=== PATIENT | male | born 1990 | race Caucasian/White ===

== ENCOUNTER 2020-03-03 12:00 | Emergency (ER) | payer OTHER, SELFPAY ==
[2020-03-03 12:09] VITALS: BP 127/81; PULSE 81; RESP 16; TEMP 37.1; O2SAT 98
--- NOTE | 2020-03-03 12:35 | ED.EYEPROB ---
HPI - Eye Problem General Chief complaint: Eye Problems Stated complaint: Swollen under right eye Time Seen by Provider: 03/03/20 12:32 Source: patient and RN notes reviewed Mode of arrival: ambulatory Limitations: no limitations History of Present Illness HPI Narrative: 30-year-old male presents with concern for swelling under his right eye. Reports he noticed it yesterday. Denies vision changes, drainage from the eye, eye pain. Reports he used a warm compress 1 time with some relief. chief complaint: other (Swelling under eye) Related Data Home Medications Medication Instructions Recorded Confirmed loratadine 10 mg tablet 10 mg PO DAILY 11/10/19 03/03/20 Allergies Allergy/AdvReac Type Severity Reaction Status Date / Time No Known Allergies Allergy Mild Verified 12/26/11 13:26 Review of Systems Review of Systems: Narrative: CONSTITUTIONAL: Denies malaise, chills, sweats, or fever. EYES: Denies visual changes, redness, or discharge. Reports swelling under right eyelid ENT: Denies rhinorrhea, congestion, sinus pain, otalgia or sore throat. SKIN: Denies rash or itching. MUSCULOSKELETAL: Denies myalgia. NEUROLOGIC: Denies headache. All systems reviewed & are unremarkable except as noted in HPI and below PMFSH Social History Social History Smoking status: Never smoker Second hand tobacco smoke exposure: No Alcohol intake: current Comments At time of signature, agree with nursing past medical, surgical, social and family history. There is no relevant family history pertinent to the presenting complaint Exam Narrative: Exam Narrative: GENERAL: Well-appearing, well-nourished, and in no acute distress. HEAD: Normocephalic, atraumatic. EYES: PERRLA, conjunctivae clear, and EOMI. No nystagmus. No periorbital edema ENT: Nares clear, turbinates pink, no rhinorrhea or epistaxis. Mucous membranes moist. TM pearly garza with sharp light reflex bilaterally; no tragal tenderness. NECK: Supple. CHEST: No respiratory distress. Speaks in full sentences. HEART: Regular rate and rhythm SKIN: Warm, dry. 2 cm x 1 cm area of erythema and mild edema, no induration with small break in skin consistent with insect bite, eyelid margin not involved. NEURO: Alert and oriented x3. No focal deficits. PSYCH: Normal mood and affect Course Course Emergency Course: Patient is aware of diagnosis, understands and agrees to treatment plan. Anticipatory guidance given. Patient agrees to follow-up as directed and is aware of reasons to seek care at the emergency department. Portions of this record may have been created with voice recognition software Vital Signs Vital signs: Vital Signs Temperature 98.8 F 03/03/20 12:09 Pulse Rate 81 03/03/20 12:09 Respiratory Rate 16 03/03/20 12:09 Blood Pressure 127/81 03/03/20 12:09 Pulse Oximetry 98 03/03/20 12:09 Temperature 98.8 F 03/03/20 12:09 Pulse Rate 81 03/03/20 12:09 Respiratory Rate 16 03/03/20 12:09 Blood Pressure 127/81 03/03/20 12:09 Pulse Oximetry 98 03/03/20 12:09 Reviewed. Pt has been instructed to follow up with his primary care provider within the next week regarding his elevated blood pressure today. MDM - Eye Problem MDM Narrative Medical decision making narrative: Consideration of the following conditions may be warranted for the presenting problem, they are not final diagnoses: Bacterial conjunctivitis, allergic conjunctivitis, viral conjunctivitis, foreign body, blepharitis, chalazion, hordeolum, corneal abrasion. Exam findings show no acute concerns or changes; patient is non-toxic appearing and is in no distress. Patient is appropriate for outpatient treatment and follow-up. Critical Care Time Critical Care Time Critical Care Time: No Discharge Plan Discharge Clinical Impression: Insect bite of eyelid with local reaction Qualifiers: Encounter type: initial encounter L
== END 2020-03-03 12:45 | disposition home or self-care (01) ==
PROVIDERS: Emergency Provider Nurse Practitioner; PCP Internal Medicine
DX: S00.261A Insect bite (nonvenomous) of right eyelid and periocular area, initial encounter (principal); W57.XXXA Bitten or stung by nonvenomous insect and other nonvenomous arthropods, initial encounter
CPT/HCPCS: 99212; G0463

== ENCOUNTER 2020-08-22 07:45 | Outpatient (CLI) | payer OTHER, SELFPAY ==
--- NOTE | 2020-09-23 08:22 | WPDHOMESLEEP ---
Sleep Study - Home Unattended Date of Study: 08/22/20 Ordering Provider: Brayden Alfaro MD Interpreting Physician: Anabelle Olson MD Home Sleep Study Type: Apnea Link Air Height: 1.85 m Weight: 83.915 kg Body Mass Index: 24.4 Neck Circumference (inches): 16 [place]: 12 Reason for Sleep Study snoring, jerking during sleep Sleep History Isra Carson is a 30 year old male who snores loudly and jerks in his sleep. His and his [id number] say that he looks like he is having a seizure while he sleeps. His mother tells him he has done this since he was a teenager. This happens every night. He has difficulty falling asleep, he wakes up during the night and he has excessive daytime sleepiness. He has a difficult time waking up in the morning. He does not sweat at night. He rarely notices his heart pounding or beating irregularly at night. He does not fall asleep during the day, involuntarily, while driving, or during physical effort. He does not have loss of muscle tone with strong emotion. He does not have excessive daytime difficulties due to excessive sleepiness, currently works as an RN. he does not feel paralyzed on waking or falling asleep. He occasionally has vivid dreamlike scenes upon awakening or falling asleep. He has never for a to go to sleep. He denies nightmares. He rarely remembers his dreams. He does not have racing thoughts, does not feel sad or depressed. He rarely has anxiety. He frequently has muscular tension. He constantly notices parts of his body jerking. He occasionally kicks at night, occasionally has crawling and aching feelings in his legs and occasionally has leg pain at night. He frequently has morning jaw pain. He does not grind his teeth during sleep. He rarely has bothered by pain during the day. He has never awakened by pain at night. He occasionally wakes up feeling stiff in the morning with sore achy muscles and pain in the neck and spine. He has fatigue, headaches and feels tense. Normal bedtime is 11:00 p.m. falling asleep within 10-20 minutes, typically waking 1-2 times at night. While awake, he will go to the bathroom to urinate, staying awake 10-15 minutes before being able to return to sleep. 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 He wakes the morning at 6:00 a.m.. On the weekends, he may sleep until 8:00 a.m.. He does take naps. A short nap may be refreshing. He is usually drowsy in the morning for 2 hours or longer. Habits: Never smoked tobacco. He drinks caffeine 2 cups of coffee a day. He drinks alcohol 2 servings per week. No recreational drugs. [facility]LY [facility] Past Medical History Medical History (Updated 09/23/20 @ 08:40 by Anabelle Olson MD) Allergic rhinitis, unspecified Anxiety disorder, unspecified Snoring Surgical History Surgical History (Updated 09/23/20 @ 08:37 by Anabelle Olson MD) Status post shoulder surgery Family History Family History Father Depression Mother Depression Social History Social History Smoking status: Never smoker Second hand tobacco smoke exposure: No Alcohol intake: current Medications Home Medications Medication Instructions Recorded Confirmed Type loratadine 10 mg tablet 10 mg PO DAILY 11/10/19 05/31/20 History citalopram 10 mg tablet 10 mg PO DAILY #90 tablet 02/16/20 05/31/20 Rx clonazepam 0.5 mg tablet 0.5 mg PO .once daily at hs #90 05/31/20 05/31/20 Rx tablet Sleep Procedure This test was performed using 4 channel monitoring including respiratory effort channel, snoring channel, heart rate channel, and oxygen saturation channel. This study was scored using CMS guidelines. Sleep Architecture Not applicable for home sleep test. Respiratory Analysis The duration of the recording time was 9 hours 15 minutes
[2020-09-23 08:27] VITALS: BMI 24.4
== END 2020-08-22 07:46 | disposition home or self-care (01) ==
LOC: ANHCSM 07:45
PROVIDERS: PCP Internal Medicine; Visit Provider Internal Medicine
DX: G47.10 Hypersomnia, unspecified (principal)
CPT/HCPCS: 95806

== ENCOUNTER 2022-05-07 09:58 | Emergency (ER) | payer OTHER, SELFPAY ==
--- NOTE | ~2022-05-07 | XR_ITS ---
XR shoulder RT min 2V 05/07/2022 11:04 Indication: Post reduction of right shoulder dislocation Procedure: 3 views right shoulder Comparison: 05/07/2022 Findings: There is anatomic alignment of the right shoulder post reduction. No acute fracture or trau matic malalignment. Acromioclavicular joint and anatomic alignment. Surrounding soft tissues and osse ous structures are within normal limits. Impression: 1: Anatomic alignment of the right shoulder post reduction. No underlying fracture. Reviewed, dictated and finalized at location L. Impression: 1: Anatomic alignment of the right shoulder post reduction. No underlying fract ure.
--- NOTE | ~2022-05-07 | XR_ITS ---
XR shoulder RT min 2V DATE: 05/07/2022 10:25 INDICATION: Injury. Pain, limited range of motion of right shoulder TECHNIQUE: 4 views COMPARISON: None FINDINGS: There is right anterior glenohumeral dislocation. No associated fracture is evident. Normal alignment at the right acromioclavicular joint. IMPRESSION: Anterior right glenohumeral dislocation Reviewed, dictated and finalized at location B.
[2022-05-07 10:02] VITALS: BP 157/89; PULSE 95; RESP 18; TEMP 36.6; O2SAT 100
--- NOTE | 2022-05-07 10:45 | ED.UPPEXIN ---
HPI - Extremity Injury (Upper) General Chief Complaint: Extremity Injury, Upper Stated Complaint: Shoulder Dislocation Time Seen by Provider: 05/07/22 10:41 Source: patient and RN notes reviewed Mode of arrival: ambulatory Limitations: no limitations History of Present Illness HPI narrative: This is a right hand dominant 32 year old male who presents for right shoulder dislocation. Patient states he was reaching for milk in the refrigerator when he dislocated his right shoulder. He has had multiple previous right shoulder dislocations. He states this last occurred this past . He denies numbness or tingling. He reports having right shoulder surgery over a decade ago for recurrent shoulder dislocations . Related Data Home Medications Medication Instructions Recorded Confirmed cetirizine 10 mg tablet (Zyrtec) 10 mg PO DAILY PRN 03/20/21 03/20/21 fluticasone furoate 27.5 2 spray intranasal DAILY 03/20/21 03/20/21 mcg/actuation nasal spray,suspension (Flonase Sensimist) Allergies Allergy/AdvReac Type Severity Reaction Status Date / Time No Known Allergies Allergy Mild Verified 05/05/22 09:41 Review of Systems Constitutional: Constitutional: Denies chills and Denies fatigue Gastrointestinal: Gastrointestinal: Denies nausea and Denies vomiting Musculoskeletal: Musculoskeletal: Reports arthralgias (right shoulder) Neurologic: Denies focal weakness and Denies numbness PMFSH Past Medical History Medical History Allergic rhinitis, unspecified Anxiety disorder, unspecified Snoring Surgical History Surgical History Status post shoulder surgery Family History Family History Father Depression Mother Depression Social History Social History Smoking status: Never smoker Second hand tobacco smoke exposure: No Alcohol intake: current Exam Const: General: no acute distress and alert Nutritional Appearance: well nourished Orientation/consciousness: patient oriented x3 Limitations: no limitations HENMT: Head: normal to inspection Eyes: EOM: EOMs intact bilaterally Resp: Effort & Inspection: normal respiratory effort Cardio: Other: intact distal pulses Skin: General skin exam: normal color Rashes: no rashes Neuro: General: patient oriented x3, moves all extremities and CN's II-XI intact bilaterally Extrem: Other: right shoulder appears dislocated, normal color. radial pulse intact Psych: Mental Status: mental status grossly normal Course Reevaluation(s) Reevaluation #1: I discussed with patient that his shoulder is dislocated. I offered to get an IV placed for pain medication and possible sedation. He agreed to shoulder reduction without medication. It has been successfully reduced. He will placed in shoulder immobilizer. Date: 05/07/22 Time: 10:49 Vital Signs Vital signs: Vital Signs Temperature 97.8 F 05/07/22 10:02 Pulse Rate 95 05/07/22 10:02 Respiratory Rate 18 05/07/22 10:02 Blood Pressure 157/89 H 05/07/22 10:02 Pulse Oximetry 100 05/07/22 10:02 Oxygen Delivery Room Air 05/07/22 10:02 Temperature 97.8 F 05/07/22 10:02 Pulse Rate 95 05/07/22 10:02 Respiratory Rate 18 05/07/22 10:02 Blood Pressure 157/89 H 05/07/22 10:02 Pulse Oximetry 100 05/07/22 10:02 Oxygen Delivery Room Air 05/07/22 10:02 Procedures Orthopedic Joint Reduction Joint #1: Orthopedic Joint Reduction Date: 05/07/22 Orthopedic Joint Reduction Time: 10:50 Side: right Joint Reduction Location: shoulder Analgesia: none Pre-Procedure Neuro Vascular Exam: normal Shoulder Technique Used (if applicable): external rotation Technique used: direct manipulation
== END 2022-05-07 11:44 | disposition home or self-care (01) ==
PROVIDERS: Emergency Provider General Practice; PCP Family Medicine
DX: M24.411 Recurrent dislocation, right shoulder (principal); F41.9 Anxiety disorder, unspecified
CPT/HCPCS: 23650; 73030; 99285

== ENCOUNTER 2022-11-11 05:19 | Emergency (ER) | payer OTHER, SELFPAY ==
--- NOTE | ~2022-11-11 | XR_ITS ---
Right Shoulder Technique: AP and scapular Y views were obtained. Clinical History: Postreduction Findings: No fracture or dislocation is seen. Osseous alignment is anatomic. The glenohumeral and acr omioclavicular joint spaces are preserved. Soft tissues are unremarkable. Impression: No fracture or dislocation seen in the current exam. Reviewed, dictated and finalized at [facility]. [employer] WORK[employer] Impression: No fracture or dislocation seen in the current exam.
[2022-11-11 05:21] VITALS: BP 144/89; PULSE 113; RESP 16; TEMP 36.7; O2SAT 97
[2022-11-11] MEDS: MORPHINE SULFATE (*CRX) 4 MG/ML INJ IV PUSH (05:33)
--- NOTE | 2022-11-11 05:33 | ED.UPPEXIN ---
HPI - Extremity Injury (Upper) General Chief Complaint: Extremity Injury, Upper Stated Complaint: shoulder Time Seen by Provider: 11/11/22 05:25 History of Present Illness HPI narrative: Patient is a 32-year-old male who presents ER with a right shoulder dislocation. Reports history of previous shoulder dislocations. He was sleeping and he thinks he was trying to potentially push-up while he was asleep when his shoulder went out of place. Sudden pain. No numbness or tingling down the arm. No additional injury or concern. Related Data Home Medications Medication Instructions Recorded Confirmed cetirizine 10 mg tablet (Zyrtec) 10 mg PO DAILY PRN 03/20/21 07/08/22 fluticasone furoate 27.5 2 spray intranasal DAILY 03/20/21 07/08/22 mcg/actuation nasal spray,suspension (Flonase Sensimist) Allergies Allergy/AdvReac Type Severity Reaction Status Date / Time azithromycin Allergy Intermediate Rash Uncoded 10/01/22 07:59 Review of Systems Musculoskeletal: Musculoskeletal: Reports arthralgias, Reports joint swelling and Denies muscle cramps Neurologic: Denies focal weakness and Denies numbness PMFSH Past Medical History Medical History Allergic rhinitis, unspecified Anxiety disorder, unspecified Snoring Surgical History Surgical History Status post shoulder surgery Family History Family History Father Depression Mother Depression Social History Social History (Updated 10/01/22 @ 08:02 by Valerie Funez MA) Smoking status: Never smoker Second hand tobacco smoke exposure: No Alcohol intake: current Alcohol use details: Socially Substance use: never Substance use type: does not use Lack of Transportation: No Lack of Food: Never True Current Housing: I Have Housing Concerned About Future Housing: No Difficulty Paying Gas/Electric Bills: No Difficulty Paying for Meds: No Currently Unemployed: No Education: Bachelor's Degree Difficulty w/ Childcare or Family Care: No Living arrangements: with family Occupation/Education: occupation Gender identity (if verbalized by the patient): Male Agree to blood products: Yes Exam Narrative: GENERAL: Well-appearing, well-nourished, and in no acute distress. HEAD: Normocephalic, atraumatic. ENT: Mucous membranes moist. NECK: Supple. CHEST: Clear to auscultation. No respiratory distress. HEART: Regular rate and rhythm. Normal peripheral pulses. EXTREMITIES: Deformity at the right shoulder consistent with anterior shoulder dislocation, decreased range of motion of shoulder due to pain and deformity with the arm abducted and slightly externally rotated as a position of comfort. Neurovascular intact in the affected extremity. SKIN: Warm, dry, no rash. NEURO: Alert and oriented x3. PSYCH: Normal mood and affect. Course Course Emergency Course: Patient feels much better after reduction. Shoulder immobilized. Discussed orthopedic follow-up. He will also need a work note as he is supposed to work this morning. Vital Signs Vital signs: Vital Signs Temperature 98.1 F 11/11/22 05:21 Pulse Rate 113 H 11/11/22 05:21 Respiratory Rate 16 11/11/22 05:21 Blood Pressure 144/89 H 11/11/22 05:21 Pulse Oximetry 97 11/11/22 05:21 Oxygen Delivery Room Air 11/11/22 05:21 Temperature 98.1 F 11/11/22 05:21 Pulse Rate 113 H 11/11/22 05:21 Respiratory Rate 16 11/11/22 05:21 Blood Pressure 144/89 H 11/11/22 05:21 Pulse Oximetry 97 11/11/22 05:21 Oxygen Delivery Room Air 11/11/22 05:21 Procedures Orthopedic Joint Reduction Joint #1: Orthopedic Joint Reduction Date: 11/11/22 Orthopedic Joint Reduction Time: 05:40 Time Out Performed: Yes Side: right Joint Reduction Location: shoulder Analgesi
== END 2022-11-11 06:24 | disposition home or self-care (01) ==
LOC: ANHED 06:03
PROVIDERS: Emergency Provider Emergency Medicine; PCP Family Medicine
DX: M24.411 Recurrent dislocation, right shoulder (principal); F41.9 Anxiety disorder, unspecified; X50.0XXA Overexertion from strenuous movement or load, initial encounter
CPT/HCPCS: 23650; 73030; 96374; 99285; J2270